=== PATIENT | male | born 1970 | race Caucasian/White ===

== ENCOUNTER 2023-11-13 12:07 | Inpatient (IN) | payer OTHER ==
[2023-11-13 12:40] VITALS: BMI 22.5
[2023-11-13] MEDS ORDERED: ACETAMINOPHEN 325 MG TABLET (FP) PO PRN (13:23)
[2023-11-13] MEDS ORDERED: BENZOCAINE/MENTHOL (CHLORASEPTIC ) LOZENGE MM PRN (13:23)
[2023-11-13] MEDS ORDERED: BISMUTH SUBSALICYLATE 262 MG/15 ML BTL PO PRN (13:23)
[2023-11-13] MEDS ORDERED: POLYETHYLENE GLYCOL (HEALTHYLAX) 3350 17 GM PACKET PO PRN (13:23)
[2023-11-13] MEDS ORDERED: BENZONATATE 200 MG CAPSULE PO PRN (13:23)
[2023-11-13] MEDS ORDERED: NALOXONE HCL 0.4 MG/ML VIAL IM PRN (13:23)
[2023-11-13] MEDS ORDERED: IBUPROFEN 600 MG TABLET (FP) PO PRN (13:23)
[2023-11-13] MEDS ORDERED: MAG HYDROX/AL HYDROX/SIMETH 30 ML UNIT-DOSE CUP PO PRN (13:23)
[2023-11-13] MEDS ORDERED: LOPERAMIDE HCL 2 MG CAPSULE PO PRN (13:23)
[2023-11-13] MEDS ORDERED: DICYCLOMINE HCL 10 MG CAPSULE PO PRN (13:23)
[2023-11-13] MEDS ORDERED: guaiFENesin 600 MG TABLET.ER (FP) PO PRN (13:23)
[2023-11-13] MEDS ORDERED: NALOXONE HCL (KLOXXADO) 8 MG SPRAY NS PRN (13:23)
[2023-11-13] MEDS ORDERED: MAGNESIUM HYDROX 2400MG/30ML ORAL SUSPENSION 30 ML CUP PO PRN (13:23)
[2023-11-13] MEDS ORDERED: IBUPROFEN 400 MG TABLET (FP) PO PRN (13:23)
[2023-11-13] MEDS ORDERED: ONDANSETRON *ODT* 4 MG TABLET SL PRN (13:23)
[2023-11-13] MEDS ORDERED: methaDONE HCL 10 MG TABLET (FOR DETOX USE ONLY) ONE (14:10)
[2023-11-13] MEDS ORDERED: BUPRENORPHINE/NALOXONE 0.5 MG/0.125 MG FILM ONE (14:11)
[2023-11-13] MEDS ORDERED: PRENATAL VITAMINS W/ FOLIC ACID TABLET (FP) PO ONE (14:11)
[2023-11-13] MEDS: methaDONE HCL 10 MG TABLET (FOR DETOX USE ONLY) PO ONE (14:17)
[2023-11-13] MEDS: cloNIDine HCL 0.1 MG TABLET PO SCH (14:18)
[2023-11-13] MEDS: PRENATAL VITAMINS W/ FOLIC ACID TABLET (FP) PO SCH (14:18)
[2023-11-13] MEDS: BUPRENORPHINE/NALOXONE 0.5 MG/0.125 MG FILM SL ONE ×2 (14:18→22:41)
[2023-11-13] MEDS: THIAMINE HCL 100 MG TABLET (FP) PO SCH (22:41)
[2023-11-13] MEDS: MELATONIN 5 MG TABLETS PO SCH (22:41)
[2023-11-13] MEDS: METHOCARBAMOL 500 MG TABLET PO PRN (22:41)
[2023-11-13] MEDS: hydrOXYzine PAMOATE 25 MG CAPSULE (FP) PO PRN (22:41)
[2023-11-13] MEDS: DICLOXACILLIN SODIUM 250 MG CAPSULE PO SCH (23:24)
[2023-11-14] MEDS: NICOTINE 7 MG/24 HOURS TOPICAL PATCH TD SCH (10:01)
[2023-11-14] MEDS: BUPRENORPHINE/NALOXONE 0.5 MG/0.125 MG FILM SL SCH (10:02)
[2023-11-14 11:44] LABS: HEMATOCRIT 36.6 % (35.4-49); HEMOGLOBIN 11.9 GM/dL (11.7-16.9); MCH 25.4 pg (25.7-33.7); MCHC 32.6 g/dl (32.0-35.9); MEAN CELL VOLUME 77.8 fl (80-96); MEAN PLT VOLUME 8.9 fl (7.5-11.1); PLATELET COUNT 254 10^3/uL (134-434); RDW 15.7 % (11.9-15.9); WHITE BLOOD COUNT 4.3 K/mm3 (4.0-10.0)
[2023-11-14 11:51] LABS: POTASSIUM 4.7 mmol/L (3.5-5.1)
[2023-11-14 11:52] LABS: CALCIUM 9.3 mg/dL (8.5-10.1)
[2023-11-14 11:53] LABS: BLOOD UREA NITROGEN 10.1 mg/dL (7-18)
[2023-11-14 11:56] LABS: CREATININE 0.6 mg/dL (0.55-1.3)
[2023-11-14 11:57] LABS: BILIRUBIN,TOTAL 0.5 mg/dL (0.2-1); TOT PROT 7.5 g/dl (6.4-8.2)
[2023-11-14] MEDS: BACITRACIN 0.9 GM PACKET TP SCH (11:59)
[2023-11-14 20:54] VITALS: RESP 16
[2023-11-15 09:10] VITALS: BP 107/60; PULSE 50; TEMP 97.5
[2023-11-15] MEDS: BUPRENORPHINE/NALOXONE 2 MG/0.5 MG FILM PACKET SL SCH (11:00)
[2023-11-15] MEDS: methaDONE HCL 10 MG TABLET (FOR DETOX USE ONLY) PO ONE (11:00)
[2023-11-16] MEDS ORDERED: BUPRENORPHINE/NALOXONE 4 MG/1 MG FILM PACKET SL SCH (10:00)
[2023-11-17] MEDS ORDERED: BUPRENORPHINE/NALOXONE 8 MG/2 MG FILM PACKET SL SCH (10:00)
[2023-11-17] MEDS ORDERED: methaDONE HCL 10 MG TABLET (FOR DETOX USE ONLY) PO ONE (10:00)
[2023-11-18] MEDS ORDERED: BUPRENORPHINE/NALOXONE 8 MG/2 MG FILM PACKET SL SCH (10:00)
== END 2023-11-15 11:18 | disposition left against medical advice (07) | DRG 770 ==
LOC: YASAS 12:07 → Y6N 13:29
PROVIDERS: ADMIT Allergy & Immunology; ATTEND Surgery
PROC: HZ2ZZZZ Detoxification Services for Substance Abuse Treatment (ICD-10-PCS; principal; 2023-11-13)
DX: F11.23 Opioid dependence with withdrawal (principal); F17.210 Nicotine dependence, cigarettes, uncomplicated; F41.8 Other specified anxiety disorders; L97.111 Non-pressure chronic ulcer of right thigh limited to breakdown of skin; Z86.19 Personal history of other infectious and parasitic diseases
CPT/HCPCS: 36415; 80053; 85027; 86780; 93005; 93010